=== PATIENT | male | born 1940 | race Caucasian/White ===

== ENCOUNTER → 2023-10-10 13:26 | Outpatient (CLI) | payer MEDICARE, SELFPAY ==
[2023-10-10 15:11] LABS: Add Manual Diff / Slide Review NO; Basophils Absolute Auto 0 /uL (0-100); Basophils Percent Auto 0.4 % (0-2); Eosinophils Absolute Auto 200 /uL (0-450); Eosinophils Percent Auto 2.2 % (2-4); Hematocrit 29.8 % (41-53); Hemoglobin 10.1 g/dL (13.5-17.5); Lymphocytes Absolute Auto 700 /uL (1100-4500); Lymphocytes Percent Auto 7.1 % (25-40); Mean Corpuscular Hemoglobin 28.9 PG (26-34); Monocytes Absolute Auto 900 /uL (0-900); Monocytes Percent Auto 9.6 % (3-14); Neutrophils Absolute Auto 7900 /uL (1500-7000); Neutrophils Percent Auto 80.7 % (50-75); Platelet Count 345 X10^3/uL (150-400); Red Blood Cell Count 3.51 X10^6/uL (4.5-5.9); Red Cell Distribution Width 12.8 % (11.6-14.8); White Blood Cell Count 9.8 X10^3/uL (4.5-11.0)
[2023-10-10 15:33] LABS: Alanine Aminotransferase 21 IU/L (<50); Albumin Globulin Ratio 1.2 (1.0-2.8); Alkaline Phosphatase 108 U/L (38-126); Aspartate Aminotransferase 26 IU/L (17-59); BUN Creatinine Ratio 34.7 (6-22); Bilirubin Total 0.3 mg/dL (0.2-1.3); Blood Urea Nitrogen 26 mg/dL (9-20); Calcium 9.3 mg/dL (8.4-10.2); Carbon Dioxide 26 mmol/L (22-32); Chloride 107 mmol/L (98-107); Estimated Glomerular Filt Rate > 60 mL/min (>60); Globulin 2.6 g/dL (1.7-4.1); Glucose 127 mg/dL (80-110); HEMOLYSIS < 15 (0-50); Potassium 3.8 mmol/L (3.4-5.1); Sodium 138 mmol/L (137-145); Total Protein 5.6 g/dL (6.3-8.2)
[2023-10-10 16:51] LABS: Vitamin D 25 Hydroxy (D3) 34.6 ng/mL (30.0-100.0)
== END ==
PROVIDERS: Referring Provider Physician Assistant; Visit Provider Physician Assistant
DX: Z01.818 Encounter for other preprocedural examination (principal); R73.9 Hyperglycemia, unspecified; E55.9 Vitamin D deficiency, unspecified; Z01.812 Encounter for preprocedural laboratory examination; R77.0 Abnormality of albumin
CPT/HCPCS: 36415; 80053; 82306; 83036; 84134; 85025; 93005

== ENCOUNTER → 2023-10-31 14:35 | Outpatient (CLI) | payer MEDICARE, SELFPAY ==
--- NOTE | 2023-10-31 14:38 | DI.RAD.S_ITS ---
PROCEDURE: XR DEXA AXIAL SKELETON INDICATIONS: Swelling of the testicles Incomplete emptying of b COMPARISON: None. FINDINGS: Lumbar Spine: L2-L4. Bone mineral density 1.211 g/cm2, T score 1.2. Left Hip: Bone mineral density 1.167 g/cm2, T score 1.8. Left Femoral Neck: Bone mineral density 0.871 g/cm2, T score 0.2. Fracture Risk Calculation (when applicable): FRAX not provided due to bone density within normal limits. IMPRESSION: Bone mineral density is within normal limits. Follow-up guidelines as follows: Osteoporosis: Consider a repeat DEXA and Vertebral Fracture Assessment (VFA) exam in 2 years or sooner if medically necessary, to reassess this patient's status. Osteopenia: Consider a repeat DEXA in 2-3 years to reassess this patient's status, or if there is a new clinical indication. Normal: Consider a repeat DEXA in 5 years or sooner, or if there is a new clinical indication. Dictated by: Rodrigo Schaefer M.D. on 10/31/2023 at 16:36 Approved by: Rodrigo Schaefer M.D. on 10/31/2023 at 16:37
--- NOTE | 2023-10-31 15:00 | DI.US.S_ITS ---
PROCEDURE: US SCROTUM INDICATIONS: SCROTAL SWELLING TECHNIQUE: Real-time scanning was performed of the scrotum and testicles, with image documentation. Color and pulse Doppler interrogation was performed of both testicles. COMPARISON: None. FINDINGS: Right: Testicle is normal in size at 4.6 x 2.5 x 3.1 cm, and heterogeneous and striated echotexture. Multiple punctate microcalcifications in the testicle. Epididymal head anechoic simple cyst measuring 5 mm. Epididymis is otherwise normal in overall size and morphology. No hydrocele or varicoceles. Overlying scrotal skin is thickened. Scrotal pleural measuring 4 mm. Left: Testicle is normal in size at 4.8 x 1.7 x 3 cm, and heterogeneous and striated echotexture. Multiple anechoic simple cysts in the epididymal head measuring to 9 mm. Epididymis is normal in overall size and morphology. No hydrocele or varicoceles. Overlying scrotal skin is normal in thickness. Doppler: Color and pulse Doppler demonstrate normal and symmetric arterial flow in both testicles. The venous flow is not well seen. IMPRESSION: Heterogeneous appearance of the bilateral testicles with striated appearance as well as thickening of the right scrotal wall suggestive of orchitis and/or edema. No discrete fluid collection or abscess. Recommend clinical correlation and consider short interval ultrasound follow-up to document improvement. Dictated by: Jammie Mendenhall M.D. on 10/31/2023 at 17:15 Approved by: Jammie Mendenhall M.D. on 10/31/2023 at 17:22
== END ==
PROVIDERS: PCP Family Medicine; Referring Provider Orthopaedic Surgery Adult Reconstructive Orthopaedic Surgery; Visit Provider Orthopaedic Surgery Adult Reconstructive Orthopaedic Surgery
DX: E21.3 Hyperparathyroidism, unspecified (principal); N50.89 Other specified disorders of the male genital organs; R33.9 Retention of urine, unspecified
CPT/HCPCS: 76870; 77080; 93975

== ENCOUNTER → 2023-12-03 11:17 | Outpatient (CLI) | payer MEDICARE, SELFPAY ==
[2023-12-03 12:51] LABS: Add Manual Diff / Slide Review NO; Basophils Absolute Auto 0 /uL (0-100); Basophils Percent Auto 0.6 % (0-2); Eosinophils Absolute Auto 100 /uL (0-450); Eosinophils Percent Auto 1.4 % (2-4); Hematocrit 26.5 % (41-53); Hemoglobin 8.6 g/dL (13.5-17.5); Lymphocytes Absolute Auto 900 /uL (1100-4500); Lymphocytes Percent Auto 11.5 % (25-40); Mean Corpuscular HGB Conc 32.3 % (30-36); Mean Corpuscular Volume 80.7 fL (80-100); Monocytes Absolute Auto 900 /uL (0-900); Monocytes Percent Auto 11.3 % (3-14); Neutrophils Absolute Auto 6100 /uL (1500-7000); Neutrophils Percent Auto 75.2 % (50-75); Platelet Count 317 X10^3/uL (150-400); Red Blood Cell Count 3.29 X10^6/uL (4.5-5.9); Red Cell Distribution Width 15.6 % (11.6-14.8); White Blood Cell Count 8.1 X10^3/uL (4.5-11.0)
== END ==
PROVIDERS: PCP Family Medicine; Referring Provider Family Medicine; Visit Provider Family Medicine
DX: D64.9 Anemia, unspecified (principal)
CPT/HCPCS: 36415; 85025

== ENCOUNTER → 2023-12-21 16:28 | Outpatient (CLI) | payer MEDICARE, SELFPAY ==
[2023-12-21 17:24] LABS: Add Manual Diff / Slide Review NO; Basophils Absolute Auto 100 /uL (0-100); Basophils Percent Auto 0.8 % (0-2); Eosinophils Absolute Auto 200 /uL (0-450); Eosinophils Percent Auto 2.3 % (2-4); Hematocrit 25.3 % (41-53); Hemoglobin 8.2 g/dL (13.5-17.5); Lymphocytes Absolute Auto 1000 /uL (1100-4500); Lymphocytes Percent Auto 11.5 % (25-40); Mean Corpuscular HGB Conc 32.4 % (30-36); Mean Corpuscular Hemoglobin 25.4 PG (26-34); Mean Corpuscular Volume 78.3 fL (80-100); Monocytes Absolute Auto 800 /uL (0-900); Monocytes Percent Auto 9.8 % (3-14); Neutrophils Absolute Auto 6300 /uL (1500-7000); Neutrophils Percent Auto 75.6 % (50-75); Platelet Count 440 X10^3/uL (150-400); Red Blood Cell Count 3.23 X10^6/uL (4.5-5.9); Red Cell Distribution Width 15.9 % (11.6-14.8); White Blood Cell Count 8.3 X10^3/uL (4.5-11.0)
[2023-12-21 17:44] LABS: Alanine Aminotransferase 19 IU/L (<50); Albumin 3.3 g/dL (3.5-5.0); Alkaline Phosphatase 117 U/L (38-126); Aspartate Aminotransferase 26 IU/L (17-59); Bilirubin Total 0.4 mg/dL (0.2-1.3); Blood Urea Nitrogen 18 mg/dL (9-20); Calcium 9.2 mg/dL (8.4-10.2); Carbon Dioxide 28 mmol/L (22-32); Chloride 104 mmol/L (98-107); Estimated Glomerular Filt Rate > 60 mL/min (>60); Globulin 3.4 g/dL (1.7-4.1); Glucose 103 mg/dL (80-110); HEMOLYSIS < 15 (0-50); Potassium 3.9 mmol/L (3.4-5.1); Sodium 137 mmol/L (137-145); Total Protein 6.7 g/dL (6.3-8.2)
[2023-12-21 17:46] LABS: Iron 21 ug/dL (49-181)
[2023-12-21 17:56] LABS: Total Iron Binding Capacity 212 ug/dL (261-462); Transferrin 163 mg/dL (206-381)
[2023-12-21 18:15] LABS: Prostate Specific Antigen 1.89 ng/mL (0.10-4.00)
[2023-12-21 18:19] LABS: Ferritin 639 ng/mL (18-464)
[2023-12-21 18:32] LABS: Hemoglobin A1C% w Est Avg Glu 5.5 % (4.0-6.0)
== END ==
PROVIDERS: PCP Registered Nurse; Referring Provider Registered Nurse; Visit Provider Registered Nurse
DX: D64.9 Anemia, unspecified (principal)
CPT/HCPCS: 36415; 80053; 82728; 83036; 83540; 83550; 84153; 84466; 85025

== ENCOUNTER → 2023-12-28 11:30 | Outpatient (CLI) | payer MEDICARE, SELFPAY ==
--- NOTE | 2023-12-28 11:32 | DI.CT.S_ITS ---
PROCEDURE: CT ABDOMEN PELVIS W CON INDICATIONS: Abdominal distension (gaseous) TECHNIQUE: After the administration of intravenous contrast, axial sections acquired from the lung bases to the pubic symphysis. Coronal and sagittal reformats were performed. For radiation dose reduction, the following was used: automated exposure control, adjustment of mA and/or kV according to patient size. COMPARISON: None. FINDINGS: Image quality: Diagnostic. Lower Chest: Cardiomegaly. Annular calcification of the mitral valve. ABDOMEN: Liver: No solid mass. Hepatic cysts. Additional subcentimeter hypoattenuating lesions, too small to characterize by CT. Gallbladder: No radiopaque gallstones or wall thickening. Biliary ducts: No biliary dilation. Pancreas: No ductal dilation. Spleen: Size is within normal limits. Adrenal Glands: No adrenal nodules. Kidneys and Ureters: No hydronephrosis. No solid mass. No complex renal cystic lesion which requires follow up. Stomach and Bowel: Normal colonic caliber, without significant wall thickening. Colonic diverticulosis without evidence of diverticulitis. Peritoneum: No abnormal intraperitoneal fluid. No free air. Ventral Wall: No significant ventral hernia. Abdominal Nodes: No retroperitoneal or mesenteric adenopathy by size criteria. Vessels: Ectatic infrarenal aorta measuring 2.6 centimeter. PELVIS: Pelvic Organs: Unremarkable. Bladder: No bladder wall thickening, accounting for underdistention. Pelvic Nodes: No enlarged lymph nodes. Miscellaneous: Small right inguinal hernia containing fat. Bones: No aggressive osseous abnormality. 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 IMPRESSION: Colonic diverticulosis without evidence of diverticulitis. Ectatic infrarenal aorta. Five year follow-up is recommended per consensus guidelines. Hepatic cysts, which are benign. Small right inguinal hernia containing fat. Dictated by: Maximiliano Ruiz M.D. on 12/28/2023 at 14:25 Approved by: Maximiliano Ruiz M.D. on 12/28/2023 at 14:31
== END ==
PROVIDERS: PCP Registered Nurse; Referring Provider Registered Nurse; Visit Provider Registered Nurse
DX: R14.0 Abdominal distension (gaseous) (principal); D64.9 Anemia, unspecified; I51.7 Cardiomegaly; K76.89 Other specified diseases of liver; K57.90 Diverticulosis of intestine, part unspecified, without perforation or abscess without bleeding; I77.811 Abdominal aortic ectasia; K40.90 Unilateral inguinal hernia, without obstruction or gangrene, not specified as recurrent
CPT/HCPCS: 74177; Q9967